=== PATIENT | female | born 1955 | race American Indian/Alaskan Native ===

== ENCOUNTER 2017-06-15 19:57 | Emergency (ER) | payer BC, OTHER ==
[~2017-06-15] VITALS: Ht 157.5 cm; Wt 68.0 kg
[~2017-06-15 19:57] MED LIST: ALBUTEROL SULF8.5 GM INH; ALLEGRA ALLERGY60 MG PO; AUGMENTIN 875-1 EACH PO; BIOTIN1 MG PO; CALCIUM + D3 E1 EACH PO; DAILY VITAMIN1 EAC1 PO; DILAUDID4 MG PO; DULERA 100 MCG/13 GM INH; FORMOTEROL; IBUPROFEN400 MG PO; IRON18 MG PO; KRILL OIL500 MG PO; LYSINE500 MG PO; NORCO 10-325 T1 EACH PO; OMEPRAZOLE20 MG PO; OXYCODONE HCL E10 MG PO; POTASSIUM CHLO10 MEQ PO; TRAMADOL HCL50 MG PO; VERAMYST10 GM NS; VITAMIN E100 UNIT PO; XARELTO10 MG PO; [UNRECOGNIZED DRUG - OTHER]
[2017-06-16] MEDS ORDERED: ZOFRAN ODT4 MG PO (02:06)
[2017-06-16] MEDS ORDERED: NAPROSYN500 MG PO (02:06)
== END 2017-06-16 02:30 | disposition home or self-care (01) ==
LOC: ED 19:57
DX: E86.0 Dehydration (principal); R11.2 Nausea with vomiting, unspecified; R51 Headache; R19.7 Diarrhea, unspecified; R79.89 Other specified abnormal findings of blood chemistry; J45.909 Unspecified asthma, uncomplicated; Z87.891 Personal history of nicotine dependence; Z98.51 Tubal ligation status; Z90.89 Acquired absence of other organs; Z88.8 Allergy status to other drugs, medicaments and biological substances; Z91.048 Other nonmedicinal substance allergy status; Z79.899 Other long term (current) drug therapy
CPT/HCPCS: 80053; 81001; 83690; 85025; 96361; 96374; 96375; 99283; J1885; J2405; J7120

== ENCOUNTER → 2018-03-15 | Emergency (ER) | payer BC, OTHER ==
[~2018-03-15] VITALS: Ht 157.5 cm; Wt 68.0 kg
[~2018-03-15] MED LIST changes: +NAPROSYN500 MG PO; +ZOFRAN ODT4 MG PO
--- OUTSIDE RECORDS SUMMARY | ~2018-03-15 | XMS | Clinical Summary ---
Demographics + + + | Address | [address] | | | [place] [address] | + + + | Home Phone | | + + + | Preferred Language | Unknown | + + + | Marital Status | Single | + + + | Mormon Affiliation | Unknown | + + + | Race | Unknown | + + + | Ethnic Group | Unknown | + + + Author + + + | Author | [facility] | | | and [place] | + + + | Organization | [facility] | | | and [place] | + + + | Address | Unknown | + + + | Phone | Unavailable | + + + Care Team Providers + +------+ + | Care Emulsion Operator Name | Role | Phone | + +------+ + PP | Unavailable | + +------+ + Allergies No Known Allergies Current Medications + + +-------+---------+------+------+-------+ | Prescription | Sig. | Disp. | Refills | Star | End | Statu | | | | | | t | Date | s | | | | | | Date | | | + + +-------+---------+------+------+-------+ | omeprazole ([facility] | Take 20 mg by mouth | | | 02/09 | | Activ | | OMEPRAZOLE) 20 mg | 2 times daily. | | | 08/28 | | e | | TBEC | | | | 12 | | | + + +-------+---------+------+------+-------+ | | take one by mouth | | | 02/09 | | Activ | | HYDROcodone-acetamin | twice daily | | | 08/28 | | e | | ophen (NORCO) 5-325 | | | | 12 | | | | mg per tablet | | | | | | | + + +-------+---------+------+------+-------+ | multivitamin | take one daily | | | 09/1 | | Activ | | (THERAGRAN) per | | | | 3/20 | | e | | tablet | | | | 12 | | | + + +-------+---------+------+------+-------+ | FISH OIL | CAPS one daily | | | 09/1 | | Activ | | | | | | 320 | | e | | | | | | 12 | | | + + +-------+---------+------+------+-------+ | | inhale one puff | | | / | | Activ | | fluticasone-salmeter | twice daily | | | 320 | | e | | ol (ADVAIR DISKUS) | | | | 12 | | | | 250-50 mcg/puff | | | | | | | | diskus inhaler | | | | | | | + + +-------+---------+------+------+-------+ | loratadine ([facility] | Take 10 mg by mouth | | | 09/1 | | Activ | | LORATADINE) 10 mg | Daily. | | | 3/20 | | e | | tablet | | | | 12 | | | + + +-------+---------+------+------+-------+ | ALBUTEROL SULFATE | NEBU 2 puffs by | | | 09/1 | | Activ | | IN | mouth 4 times daily | | | 3/20 | | e | | | | | | 12 | | | + + +-------+---------+------+------+-------+ | ibuprofen | Take 600 mg by mouth | | | 09/1 | | Activ | | (ADVIL,MOTRIN) 600 | 3 times daily (with | | | 3/20 | | e | | MG tablet | meals). | | | 12 | | | + + +-------+---------+------+------+-------+ Active Problems + + + | Problem | Noted Date | + + + | ABDOMINAL PAIN | | + + + Social History + +-------+ +--------+------+ | Tobacco Use | Types | Packs/Day | Years | Date | | | | | Used | | + +-------+ +--------+------+ | Never Assessed | | | | | + +-------+ +--------+------+ + + + | Sex Assigned at | Date Recorded | | | | + + + | Not on file | | + + + Last Filed Vital Signs + + + + | Vital Sign | Reading | Time Taken | + + + + | Blood Pressure | 110/80 | 03/02/2010 0000 PDT | + + + + | Pulse | - | - | + + + + | Temperature | - | - | + + + + | Respiratory Rate | - | - | + + + + | Oxygen Saturation | - | - | + + + + | Inhaled Oxygen | - | - | | Concentration | | | + + + + | Weight | 75.8 kg (167 lb) | 03/02/2010 0000 PDT | + + + + | Height | 157.5 cm (5' 2") | 02/03/2010 0000 PDT | + + + + | Body Mass Index | 30.54 | 03/02/2010 0000 PDT | + + + + Plan of Treatment + + + + + | Health Maintenance | Due Date | Last Done | Comments | + + + + + | Vaccine: | | | | | Dtap/Tdap/Td (1 - | 3 | | | | Tdap) | | | | + + + + + | Cervical Cancer | | | | | Screening (Pap) | 4 | | | + + + + + | Vaccine: Zoster (1 | | | | | of 2) | 4 | | | + + + + + | Vaccine: Influenza | | | | | (#1) | 8 | | | + + + + + Results Not on filefrom Last 3 Months
--- OUTSIDE RECORDS SUMMARY | ~2018-03-15 | XMS | Clinical Summary ---
Demographics + + + | Address | [address] | | | [place] [address] | + + + | Home Phone | | + + + | Preferred Language | Unknown | + + + | Marital Status | Single | + + + | Adventism Affiliation | Unknown | + + + | Race | Unknown | + + + | Ethnic Group | Unknown | + + + Author + + + | Author | [facility] | | | and [place] | + + + | Organization | [facility] | | | and [place] | + + + | Address | Unknown | + + + | Phone | Unavailable | + + + Care Team Providers + +------+ + | Care [employer] Dean Name | Role | Phone | + [...]
== END ==
LOC: ED 18:14
DX: K52.9 Noninfective gastroenteritis and colitis, unspecified (principal); J20.9 Acute bronchitis, unspecified; Z87.891 Personal history of nicotine dependence; Z88.8 Allergy status to other drugs, medicaments and biological substances; Z91.048 Other nonmedicinal substance allergy status; Z79.899 Other long term (current) drug therapy
CPT/HCPCS: 71045; 80053; 81001; 85025; 87502; 96374; 99284; J2405; J7030; J7040

== ENCOUNTER 2021-02-14 11:30 | Emergency (ER) | payer MEDICARE, OTHER ==
[~2021-02-14] VITALS: Ht 157.5 cm; Wt 77.1 kg
[2021-02-14] MEDS ORDERED: HYDROCODON-ACE1 EA10 PO (15:11)
== END 2021-02-14 15:19 | disposition home or self-care (01) ==
LOC: ED 11:30
DX: S66.912A Strain of unspecified muscle, fascia and tendon at wrist and hand level, left hand, initial encounter (principal); S46.912A Strain of unspecified muscle, fascia and tendon at shoulder and upper arm level, left arm, initial encounter; R07.89 Other chest pain; J45.909 Unspecified asthma, uncomplicated; Z91.041 Radiographic dye allergy status; Z91.048 Other nonmedicinal substance allergy status; Z79.899 Other long term (current) drug therapy; W22.8XXA Striking against or struck by other objects, initial encounter
CPT/HCPCS: 71101; 73030; 73060; 73130; 99283-25

== ENCOUNTER 2022-12-20 05:40 | Day surgery (SDC) | payer MEDICARE, OTHER ==
[2022-09-11 08:29] VITALS: BP 128/73
[2022-09-15 05:58] VITALS: BP 133/72
--- NOTE | 2022-09-15 11:56 | NUR ---
MELCHOR BARNETT REQUESTED I NOT DISTURB PT. OR STAFF WORKING WITH PT, MAY HAVE TO CANCEL PROCEDURE. WILL FOLLOW
--- NOTE | 2022-09-16 21:21 | EKG ---
[facility] [address] [place] [address] Signed Normal sinus rhythm Normal ECG When compared with ECG of 11-SEP-2022 07:36, Sinus rhythm has replaced Junctional rhythm Confirmed by Daniela Mustafa MD () on 09/16/2022 9:21:27 PM Electronically Signed By: DANIELA MUSTAFA MD 09/16/222120 PATIENT NAME: ADRIANAGILSON MARTÍN Electrocardiogram DATE OF : 51 PHYSICIAN: DANIELA MUSTAFA MD REPORT #: [id number] REPORT IS CONFIDENTIAL AND NOT TO BE RELEASED WITHOUT AUTHORIZATION
[2022-12-13 09:03] VITALS: BP 133/71
[~2022-12-20] VITALS: Ht 154.9 cm; Wt 77.3 kg
[~2022-12-20 05:40] MED LIST changes: +ARIMIDEX1 MG PO; +CELEXA10 MG PO; +HYDROCODON-ACE1 EA10 PO; +POTASSIUM PO; +VITAMIN D350 MCG PO
[2022-12-20 05:57] VITALS: BP 130/59
[2022-12-20] MEDS ORDERED: LEVOTHYROXINE25 MC1 PO (05:59)
[2022-12-20] MEDS ORDERED: ZOLOFT50 MG PO (05:59)
[2022-12-20 08:32] VITALS: BP 131/62
--- NOTE | 2022-12-20 09:47 | OR ---
[facility] [address] [place], [place] [address] Signed DATE OF OPERATION: 12/20/2022 SURGEON: Porsche Weinstein MD PREOPERATIVE DIAGNOSES: 1. Screening. 2. Chronic diarrhea. 3. Cirrhosis of the liver. POSTOPERATIVE DIAGNOSES: 1. Moderate internal hemorrhoids. 2. 5 mm polyp at 4 cm in rectum. 3. 7 mm polyp at base of cecum. 4. 4 mm polyp at 50 cm in left colon. 5. 4 mm polyp at 30 cm in left colon. PROCEDURE: Colonoscopy with hot biopsy. ESTIMATED BLOOD LOSS: None. INDICATIONS: Gilson is a 67-year-old female, who was asked to see me for a followup colonoscopy. She has no lower GI complaints. There is no family history of colon cancer or polyps. She actually underwent a colonoscopy with Dr. Bustamante in 2006 and was found to have self-limiting mild colitis. She is also known to have chronic diarrhea and cirrhosis of the liver. She came to us in September and her potassium was low, so we had to cancel the colonoscopy. She now has the potassium repleted and she presents today for the colonoscopy. In the office, I had given her a pamphlet on colonoscopy. She recalls the nature of the test. There is risk including, but not limited to gas bloating, crampy abdominal pain, bleeding, perforation requiring surgery, and missed diagnosis. We also had reviewed the instructions for a bowel prep line by line. She is very familiar with MiraLAX having been through multiple surgeries and the use of narcotics. She told me she always anesthesia when she goes in and out. Also, she has very round full face, heavy neck, her asthma and her history of cirrhosis of the liver. In that regard, we asked for monitored anesthesia care with propofol infusion. That proved to be a palencia decision. She had expressed understanding and wished to proceed. PROCEDURE NOTE: Electronically Signed By: PORSCHE WEINSTEIN MD 12/20/22 0947 PATIENT NAME: GILSON WRIGHT OPERATIVE REPORT DATE OF : 51 REPORT #: [id number] PHYSICIAN: PORSCHE WEINSTEIN MD PCP: CYN VALDOVINOS REPORT IS CONFIDENTIAL AND NOT TO BE RELEASED WITHOUT AUTHORIZATION [facility] [address] [place], [place] [address] Signed Gilson was taken into our endoscopy suite and placed in the left lateral decubitus position. She was given monitored anesthesia care with propofol infusion per our nurse filleter. A digital rectal exam was performed and this was unremarkable. She had no external hemorrhoids. She had good sphincter tone. There were no masses. The adult colonoscope was introduced and advanced all around into the cecum under direct visualization of the camera without difficulty. Her prep was quite excellent. We could easily see the appendiceal orifice and the ileocecal valve. The above-mentioned polyps were all removed with the help of a hot biopsy forceps. As the scope was withdrawn, we did not see any diverticula. The rectum was basically unremarkable. Upon retroflexion of the scope, she does have moderate sized internal hemorrhoids. After this, the gas was suctioned out and the colonoscope removed. Gilson tolerated the procedure quite well. RECOMMENDATIONS: I will see Gilson back in my office in 7 to 14 days to review her results. MD ALE Cotton/MODL /[id number] cc: [facility] Porsche Weinstein MD Copies: PORSCHE WEINSTEIN MD ~ Electronically Signed By: PORSCHE WEINSTEIN MD 12/20/22 0947 PATIENT NAME: GILSON WRIGHT MARTÍN OPERATIVE REPORT DATE OF : 51 REPORT #: [id number] PHYSICIAN: PORSCHE WEINSTEIN MD PCP: CYN VALDOVINOS REPORT IS CONFIDENTIAL AND NOT TO BE RELEASED WITHOUT AUTHORIZATION
--- NOTE | 2022-12-20 09:48 | NUR ---
12/20/22 0948 Alba Ravi 0802 PT ARRIVED IN PACU SLEEPY WITH NO C/O'S. ABD SOFT. 0815 DR AT BEDSIDE. 0825 SITTING UP IN BED SIPPING ON JUICE. NO C/O'S. 0840 DC INSTRUCTIONS GIVEN. ALL QUESTIONS ANSWERED.
--- NOTE | 2022-12-20 12:45 | NUR ---
PT IN BED WITH LIGHTS OFF AND EYES CLOSED. DID NOT DISTURB. PRAYED FROM [facility]ALLWAY.
--- NOTE | 2022-12-21 16:51 | PATH ---
[facility] [address] [facility] [place], [place] [address] Signed SPECIMEN(S): A COLON POLYP AT 4 CM SPECIMEN(S): B DISTAL ASCENDING/RIGHT COLON POLYP SPECIMEN(S): C CECUM COLON POLYP SPECIMEN(S): D DESCENDING/LEFT COLON POLYP AT 50 CM SPECIMEN(S): E COLON POLYP AT 30 CM SPECIMEN SOURCE: A. COLON POLYP AT 4 CM B. DISTAL ASCENDING/RIGHT COLON POLYP C. CECUM COLON POLYP D. DESCENDING/LEFT COLON POLYP AT 50 CM E. COLON POLYP AT 30 CM CLINICAL HISTORY: Post: Internal hemorrhoids; polyp x 5. FINAL PATHOLOGIC DIAGNOSIS: A. Colon polyp at 4 cm: - Tubular adenoma (two fragments). B. Distal ascending / right colon polyp: - Tubular adenoma (two fragments). C. Cecum colon polyp: - Tubular adenoma (three fragments). D. Descending / left colon polyp at 50 cm: - Tubular adenoma (one fragment). - Hyper plastic polyp (one fragment). E. Colon polyp at 30 cm: - Tubular adenoma (two fragments). JVR:[id number] MICROSCOPIC EXAMINATION: Histologic sections of all submitted blocks are examined by light microscopy. These findings, together with the gross examination, support the pathologic diagnosis. GROSS DESCRIPTION: A. The specimen, labeled and designated "Demary, colon polyp at 4 cm," is received in formalin and consists of three huang soft tissue fragments, ranging from 0.15-0.3 cm. Entirely submitted in (A1). B. The specimen, labeled and designated "Demary, distal ascending/right colon polyp," is received in formalin and consists of two huang soft tissue fragments, PATIENT NAME: GILSON WRIGHT PATHOLOGY DATE OF : 51 REPORT #: [id number] PHYSICIAN: INDU GOODWIN PCP: CYN VALDOVINOS REPORT IS CONFIDENTIAL AND NOT TO BE RELEASED WITHOUT AUTHORIZATION [facility] [address] [place], [place] [address] Signed ranging from 0.25-0.3 cm. Entirely submitted in (B1). C. The specimen, labeled and designated "Demary, cecum colon polyp," is received in formalin and consists of three huang soft tissue fragments, ranging from 0.1-0.2 cm. Entirely submitted in (C1). D. The specimen, labeled and designated "Demary, descending/left colon polyp 50 cm," is received in formalin and consists of two huang soft tissue fragments, ranging from 0.2-0.25 cm. Entirely submitted in (D1). E. The specimen, labeled and designated "Demary, colon polyp 30 cm," is received in formalin and consists of three huang soft tissue fragments, ranging from 0.1-0.25 cm. Entirely submitted in (E1). KA (under the direct supervision of a pathologist) The Gross Description was prepared using a voice recognition system. The report was reviewed for accuracy; however, sound-alike word errors, addition and/or deletions may occur. If there is any question about this report, please contact Client Services. PERFORMING LABORATORY: Technical component was performed by [facility], [address] [place] [id number] (CLIA# [id number]). Professional interpretation was performed by [facility], [address] [place] [address], [place] [address] (CLIA#: [id number]). Diagnostician: Donnie Adame MD Pathologist Electronically Signed 12/21/2022 Copies: ~ PATIENT NAME: GILSON WRIGHT MARTÍN PATHOLOGY DATE OF : 51 REPORT #: [id number] PHYSICIAN: INDU PATHOLOGY PCP: CYN VALDOVINOS REPORT IS CONFIDENTIAL AND NOT TO BE RELEASED WITHOUT AUTHORIZATION
== END 2022-12-20 08:40 | disposition home or self-care (01) ==
LOC: DS 05:40 → OPS 05:40
PROVIDERS: ATTEND Colon & Rectal Surgery
PROC: 0DBP8ZX Excision of Rectum, Via Natural or Artificial Opening Endoscopic, Diagnostic (ICD-10-PCS; 2022-12-20)
PROC: 0DBM8ZX Excision of Descending Colon, Via Natural or Artificial Opening Endoscopic, Diagnostic (ICD-10-PCS; 2022-12-20)
PROC: 0DBH8ZX Excision of Cecum, Via Natural or Artificial Opening Endoscopic, Diagnostic (ICD-10-PCS; principal; 2022-12-20 07:30)
DX: Z12.11 Encounter for screening for malignant neoplasm of colon (principal); K52.9 Noninfective gastroenteritis and colitis, unspecified; J45.909 Unspecified asthma, uncomplicated; F41.9 Anxiety disorder, unspecified; K74.60 Unspecified cirrhosis of liver; Z85.3 Personal history of malignant neoplasm of breast; Z68.33 Body mass index [BMI] 33.0-33.9, adult; D12.2 Benign neoplasm of ascending colon; D12.0 Benign neoplasm of cecum; D12.4 Benign neoplasm of descending colon
CPT/HCPCS: 00811; 36415; 80048; 93005; 93010; J0690; J2704; J7121

== ENCOUNTER 2024-04-05 16:16 | Emergency (ER) | payer MEDICARE, OTHER ==
[~2024-04-05] VITALS: Ht 154.9 cm; Wt 75.0 kg
[~2024-04-05 16:16] MED LIST changes: +LEVOTHYROXINE25 MC1 PO; +ZOLOFT50 MG PO
[2024-04-05 17:20] VITALS: BP 136/79
== END 2024-04-05 17:20 | disposition home or self-care (01) ==
LOC: ED 16:16
DX: H11.32 Conjunctival hemorrhage, left eye (principal); J45.909 Unspecified asthma, uncomplicated; Z85.3 Personal history of malignant neoplasm of breast; Z90.13 Acquired absence of bilateral breasts and nipples; Z91.041 Radiographic dye allergy status; Z91.040 Latex allergy status; Z91.09 Other allergy status, other than to drugs and biological substances; Z79.890 Hormone replacement therapy; Z79.899 Other long term (current) drug therapy
CPT/HCPCS: 99282

== ENCOUNTER 2024-05-31 11:36 | Emergency (ER) | payer MEDICARE, OTHER ==
[~2024-05-31] VITALS: Ht 154.9 cm; Wt 70.9 kg
[2024-05-31 12:30] LABS: HEMATOCRIT 38.3 % (35.0-50.0); HEMOGLOBIN 13.5 g/dL (12.0-18.0); MCH 32.6 (27-36); MCHC 35.2 g/dl (30-36); MCV 92.4 fl (81-99); PLATELET COUNT 208 K/uL (140-440); RBC 4.14 M/ul (4.3-5.7); RDW 14.1 (10.5-15.0)
[2024-05-31] MEDS ORDERED: SODIUM CHLORIDE 0.9% 1,000 ML IV ONE (12:30)
[2024-05-31] MEDS ORDERED: ondansetron HCL 4 MG/2 ML VIAL IV ONE (12:30)
[2024-05-31 12:38] LABS: ALBUMIN/GLOBULIN RATIO 0.7 (1.1-2.4); ANION GAP 14.7 (7-21); BILIRUBIN, TOTAL 0.7 ng/dL (0.2-1.0); BUN/CREATININE RATIO 8.53 (6.0-28.6); CALCIUM 8.7 mg/dL (8.5-10.1); CREATININE, SERUM 0.82 mg/dL (0.55-1.02); POTASSIUM 2.7 mmol/L (3.5-5.1); PROTEIN, TOTAL 7.3 g/dL (6.4-8.2)
[2024-05-31 12:46] LABS: LYMPHOCYTES, MANUAL DIFF 35; MONOCYTES, MANUAL DIFF 7; NEUTROPHILS, MANUAL DIFF 58
[2024-05-31 13:53] LABS: BILIRUBIN, URINE NEGATIVE (negative); BLOOD/HGB, URINE NEGATIVE (Negative); KETONE, URINE NEGATIVE (Negative); LEUK ESTERASE, URINE NEGATIVE (negative); NITRITE, URINE NEGATIVE (negative)
[2024-05-31] MEDS ORDERED: POTASSIUM CHLORIDE 10 MEQ/100 ML BAG IV SCH (14:30)
[2024-05-31] MEDS ORDERED: POTASSIUM CHLORIDE 10 MEQ TABCR PO ONE (14:30)
[2024-05-31] MEDS ORDERED: DIPHENOXYLATE/ATROPINE 1 EA TAB PO ONE (14:30)
[2024-05-31] MEDS ORDERED: LOMOTIL TABLET1 EACH PO (16:17)
[2024-05-31] MEDS ORDERED: CEFDINIR300 MG PO (16:17)
[2024-05-31] MEDS ORDERED: METRONIDAZOLE500 MG PO (16:17)
[2024-05-31 17:15] VITALS: BP 114/59
== END 2024-05-31 17:15 | disposition home or self-care (01) ==
LOC: ED 11:36
PROVIDERS: Emergency Medicine
DX: K52.9 Noninfective gastroenteritis and colitis, unspecified (principal); E87.6 Hypokalemia; C50.919 Malignant neoplasm of unspecified site of unspecified female breast; Z91.040 Latex allergy status; Z91.09 Other allergy status, other than to drugs and biological substances; Z91.048 Other nonmedicinal substance allergy status; Z79.899 Other long term (current) drug therapy
CPT/HCPCS: 36415; 74176; 80053; 81003; 83690; 85025; 96361; 96365; 96366; 96375; 99284-25; A9270; J2405; J3480; J7030